=== PATIENT | male | born 1975 | race American Indian/Alaskan Native ===

== ENCOUNTER 2017-10-27 15:47 | Emergency (ER) | payer SELFPAY ==
[2017-10-27] MEDS ORDERED: BOOSTRIX IM ONE (19:42)
[2017-10-27] MEDS ORDERED: ULTRAM PO ONE (19:42)
[2017-10-27] MEDS ORDERED: CATAPRES PO ONE (20:11)
--- NOTE | 2017-10-27 20:16 | Emergency Department Report ---
- General Chief Complaint: Puncture Wound Stated Complaint: CHEST PAIN/STEPPED ON NAIL Time Seen by Provider: 10/27/17 19:41 Source: patient Mode of arrival: Ambulatory Limitations: No Limitations - History of Present Illness Initial Comments: Patient is a 42-year-old -[place] male who presents with left foot pain status post stepping on a kasandra nail 3 days ago complains of 4/10 left foot pain exacerbated by weightbearing patient is ambulatory with minimal gait disturbance there is no swelling no bleeding no discharge from the wound dry and intact patient denies numbness numbness or tingling. Patient denies chest pain as indicated per triage patient does have a history of hypertension however nonadhering with blood pressure medicine regimen. Patient denies chest pain or shortness of breath no dizziness no lightheadedness no chest no nausea vomiting. Onset/Timin -: days(s) Location: other Extremity Location: Left: Foot Place: home Patient Tetanus UTD: No (2004) Context: sharp object use (nail ) Associated Symptoms: pain. denies: loss of feeling/numbness, suspect foreign body present, unable to move injured part, weakness followed by dizziness, nausea/vomiting, fever - Related Data Previous Rx's Medication Instructions Recorded Last Taken Type Lisinopril [Zestril TAB] 10 mg PO QDAY #30 tablet 11/22/13 Unknown Rx Sulfamethoxazole/Trimethoprim 1 each PO BID #20 tablet 11/22/13 Unknown Rx [Bactrim Ds] Ciprofloxacin HCl [Cipro] 500 mg PO BID #20 tablet 10/27/17 Unknown Rx amLODIPine [Norvasc] 5 mg PO DAILY #30 tab 10/27/17 Unknown Rx traMADol [Ultram] 50 mg PO Q8HR PRN #10 tablet 10/27/17 Unknown Rx Allergies Allergy/AdvReac Type Severity Reaction Status Date / Time No Known Allergies Allergy Verified 10/27/17 16:15 ED Review of Systems ROS: Stated complaint: CHEST PAIN/STEPPED ON NAIL Other details as noted in HPI Constitutional: denies: chills, fever Eyes: denies: eye pain, eye discharge, vision change ENT: denies: ear pain, throat pain Respiratory: denies: cough, shortness of breath, wheezing Cardiovascular: denies: chest pain, palpitations Endocrine: no symptoms reported Gastrointestinal: denies: abdominal pain, nausea, diarrhea Genitourinary: denies: urgency, dysuria Musculoskeletal: myalgia (foot pain ), other Skin: other (puncture wound left foot ) Neurological: denies: headache, weakness, paresthesias Psychiatric: denies: anxiety, depression Hematological/Lymphatic: denies: easy bleeding, easy bruising ED Past Medical Hx - Past Medical History Previous Medical History?: Yes Hx Hypertension: Yes (Hasn't taken meds since 01/2017) - Surgical History Past Surgical History?: No - Social History Smoking Status: Current Every Day Smoker Substance Use Type: None - Medications Home Medications: Home Medications Medication Instructions Recorded Confirmed Last Taken Type Lisinopril [Zestril TAB] 10 mg PO QDAY #30 tablet 11/22/13 Unknown Rx Sulfamethoxazole/Trimethoprim 1 each PO BID #20 tablet 11/22/13 Unknown Rx [Bactrim Ds] Ciprofloxacin HCl [Cipro] 500 mg PO BID #20 tablet 10/27/17 Unknown Rx amLODIPine [Norvasc] 5 mg PO DAILY #30 tab 10/27/17 Unknown Rx traMADol [Ultram] 50 mg PO Q8HR PRN #10 tablet 10/27/17 Unknown Rx ED Physical Exam - General Limitations: No Limitations General appearance: alert, in no apparent distress - Head Head exam: Present: atraumatic, normocephalic - Eye Eye exam: Present: normal appearance - ENT ENT exam: Present: mucous membranes moist - Neck Neck exam: Present: normal inspection - Respiratory Respiratory exam: Present: normal lung sounds bilaterally. Absent: respiratory distress - Cardiovascular Cardiovascular Exam: Present: regular rate, normal rhythm. Absent: systolic murmur, diastolic murmur, rubs, gallop - GI/Abdominal GI/Abdominal exam: Present: soft, normal bowel sounds - Rectal Rectal exam: Present: deferred - Extremities Exam Extremities exam: Present: normal inspection, tenderness (left foot pain ) ED Course Vital Signs 10/27/17 16:11 Temperature 98.6 F Pulse Rate 97 H Respiratory 18 Rate Blood Pressure 185/125 O2 Sat by Pulse 100 Oximetry ED Medical Decision Making - Radiology Data Radiology results: image reviewed no fracture no soft tissue abnormality - Medical Decision Making this is a simple puncture wound pt given wound care instructions pt is ambulatory, did have on athletic shoes as time of puncture will tx with cipro po bid x 10 days xray neg for fracture no foreignbody, will dc to home in stable condition will follow up with [facility] in 2-3 days for wound check , wound is clean no erythema no swelling no ecchymosis sno drainage at this time. Critical care attestation.: If time is entered above; I have spent that time in minutes in the direct care of this critically ill patient, excluding procedure time. ED Disposition Clinical Impression: Puncture wound of foot Qualifiers: Encounter type: initial encounter Laterality: left Qualified Code(s): S91.332A - Puncture wound without foreign body, left foot, initial encounter Disposition: DC-01 TO HOME OR SELFCARE Is pt being admited?: No Does the pt Need Aspirin: No Condition: Good Instructions: Puncture Wound (ED), Chronic Hypertension (ED) Prescriptions: amLODIPine [Norvasc] 5 mg PO DAILY #30 tab Ciprofloxacin HCl [Cipro] 500 mg PO BID #20 tablet traMADol [Ultram] 50 mg PO Q8HR PRN #10 tablet PRN Reason: Pain Referrals: [facility] [Outside] - 3-5 Days Forms: Work/School Release Form(ED) Time of Disposition: 20:24
--- NOTE | 2017-10-27 20:20 | XRay Report ---
FINAL REPORT PROCEDURE: XR FOOT 2V LT TECHNIQUE: LEFT foot radiographs, AP and lateral views. HISTORY: stepped on nail.... middle of foot COMPARISON: No prior studies are available for comparison. FINDINGS: Fracture (s) and/or Dislocation(s): None . Alignment: Normal. Joint space(s): Normal. Soft tissues: Normal. Bone mineralization: Normal. Foreign bodies: None. Calcaneal spurring: None. IMPRESSION: Normal Examination.
[2017-10-27 20:22] VITALS: BP 194/125
== END 2017-10-27 20:39 | disposition home or self-care (01) ==
LOC: ED 15:47
DX: S91.332A Puncture wound without foreign body, left foot, initial encounter (principal); I10 Essential (primary) hypertension; F17.200 Nicotine dependence, unspecified, uncomplicated; W45.8XXA Other foreign body or object entering through skin, initial encounter; Y93.89 Activity, other specified; Y92.89 Other specified places as the place of occurrence of the external cause; Y99.8 Other external cause status
CPT/HCPCS: 90471; 90715

== ENCOUNTER 2021-05-22 12:25 | Emergency (ER) | payer SELFPAY ==
[2021-05-22] MEDS ORDERED: KETOROLAC 10 MG TAB PO ONE (17:45)
[2021-05-22] MEDS ORDERED: predniSONE 20 MG TAB PO ONE (17:45)
[2021-05-22] MEDS ORDERED: CYCLOBENZAPRINE 10 MG TAB PO ONE (17:46)
--- NOTE | 2021-05-22 18:37 | Emergency Department Report ---
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 He states that he started new job that requires alot of llifting and working increases pain. He also requests refill of HTN medication. ED Review of Systems ROS: Stated complaint: LEFT SIDED NUMBNESS/SHOULDER PAIN Other details as noted in HPI Comment: All other systems reviewed and negative Constitutional: denies: chills, fever Eyes: denies: eye pain ENT: denies: ear pain Respiratory: denies: shortness of breath Cardiovascular: denies: chest pain, dyspnea on exertion Endocrine: no symptoms reported Gastrointestinal: denies: abdominal pain, nausea, vomiting Genitourinary: denies: urgency, dysuria Musculoskeletal: denies: back pain Skin: denies: rash, lesions Neurological: numbness (to left arm). denies: headache, weakness, paresthesias Psychiatric: denies: anxiety Hematological/Lymphatic: easy bruising. denies: easy bleeding ED Past Medical Hx - Past Medical History Hx Hypertension: Yes (Hasn't taken meds since 01/2017) - Social History Smoking Status: Current Every Day Smoker Substance Use Type: None - Medications Home Medications: Home Medications Medication Instructions Recorded Confirmed Last Taken Type Sulfamethoxazole/Trimethoprim 1 each PO BID #20 tablet 11/22/13 Unknown Rx [Bactrim Ds] lisinopriL [Zestril TAB] 10 mg PO QDAY #30 tablet 11/22/13 Unknown Rx Ciprofloxacin HCl [Cipro] 500 mg PO BID #20 tablet 10/27/17 Unknown Rx traMADoL [Ultram] 50 mg PO Q8HR PRN #10 tablet 10/27/17 Unknown Rx Cyclobenzaprine [Flexeril] 10 mg PO TID PRN #21 tab 05/22/21 Unknown Rx Naproxen [Naprosyn] 500 mg PO BID #14 tab 05/22/21 Unknown Rx amLODIPine 5 mg PO DAILY #30 tab 05/22/21 Unknown Rx prednisoLONE [Millipred 5mg (6 day 5 mg PO QDAY #1 pack 05/22/21 Unknown Rx 21 tab dosepak)] Upper Extremity Exam - Exam General: Vital signs noted. No distress. Alert and acting appropriately. Head and Torso: No HEENT Abnormality, No Neck Tenderness, No Chest/Lungs Abnormality, No Abdominal Tenderness, No Back Tenderness Shoulder Exam: Yes Shoulder Tenderness, No Clavicle Tenderness, No Normal Range of Motion in Shoulder, No Shoulder Deformity, No AC Joint Tenderness Arm Exam: No Arm Deformity Elbow: Yes Normal Range of Motion in Elbow, No Elbow Tenderness, No Elbow Deformity Forearm: No Forearm Tenderness, No Forearm Deformity, No Pain with Pronation, No Pain with Supination CMS Exam: Yes Normal Distal Pulses, Yes Normal Capillary Refill, Yes Normal Distal Sensation, No Broken Skin ED Course Vital Signs 05/22/21 05/22/21 15:13 18:10 Temperature 98.8 F Pulse Rate 105 H Respiratory 16 14 Rate Blood Pressure 175/120 [Left] O2 Sat by Pulse 100 Oximetry ED Medical Decision Making - Medical Decision Making 30 yo female with no pmh presents to ed for evaluation of left facial pain. She states that she was drinking last night and fell down and hit the left side of her face. She presents with pain and swelling to area. She denies LOC, headache, neck pain, dizziness, n/v, and ear pain or drainage. Exam consistent with cervical radicular pain. Patient denies injury. Pain was improved after medications given in Ed. Patient will be treated with 6 day course of steroids along with anti inflammatories and muscle relaxants. He was also given refill of norvasc for htn. He voices understanding of and agreement with plan of care. Critical care attestation.: If time is entered above; I have spent that time in minutes in the direct care of this critically ill patient, excluding procedure time. ED Disposition Clinical Impression: Cervical radicular pain, Medication refill Disposition: 01 HOME / SELF CARE / HOMELESS Is pt being admited?: No Does the pt Need Aspirin: No Condition: Stable Instructions: Radicular Pain, Amlodipine tablets, Cervical Radiculopathy, [id number] Additional Instructions: Take medications as prescribed. Follow-up with primary care provider if no improvement or worsening symptoms. Prescriptions: amLODIPine 5 mg PO DAILY #30 tab Cyclobenzaprine [Flexeril] 10 mg PO TID PRN #21 tab PRN Reason: Muscle Spasm prednisoLONE [Millipred 5mg (6 day 21 tab dosepak)] 5 mg PO QDAY #1 pack Naproxen [Naprosyn] 500 mg PO BID #14 tab Referrals: PRIMARY CARE, [Primary Care Provider] - 3-5 Days Forms: Work/School Release Form(ED) Time of Disposition: 18:37
[2021-05-22 19:29] VITALS: BP 155/112
== END 2021-05-22 19:28 | disposition home or self-care (01) ==
LOC: ED 12:25
DX: M54.12 Radiculopathy, cervical region (principal); Z76.0 Encounter for issue of repeat prescription; I10 Essential (primary) hypertension; F17.200 Nicotine dependence, unspecified, uncomplicated
CPT/HCPCS: 99282

== ENCOUNTER 2021-10-08 16:36 | Emergency (ER) | payer SELFPAY ==
--- NOTE | 2021-10-08 21:06 | XRay Report ---
CHEST 2 VIEWS INDICATION / CLINICAL INFORMATION: Chest Pain. COMPARISON: 11/21/2013 FINDINGS: SUPPORT DEVICES: None. HEART / MEDIASTINUM: No significant abnormality. LUNGS / PLEURA: No significant pulmonary or pleural abnormality. No pneumothorax. ADDITIONAL FINDINGS: No significant additional findings. IMPRESSION: 1. No acute findings. Signer Name: Joshua Cabral DO Signed: 10/08/2021 9:02 PM Workstation Name: [id number]
[2021-10-08 21:47] LABS: Alanine Aminotransferase 24 units/L (7-56); Albumin 4.5 g/dL (3.9-5); BUN/Creatinine Ratio 13; Blood Urea Nitrogen 31 mg/dL (9-20); Calcium 9.7 mg/dL (8.4-10.2); Hemolysis Index 3
[2021-10-09] MEDS ORDERED: SODIUM CHLORIDE 0.9% 1000 ML 1,000 ML IV ONE (06:27)
[2021-10-09] MEDS ORDERED: ONDANSETRON 4 MG/2 ML INJ IV ONE (06:27)
[2021-10-09 07:16] LABS: Basophils # (Auto) 0.1 K/mm3 (0.0-0.1); Basophils % (Auto) 0.5 % (0.0-1.8); Eosinophils % (Auto) 0.1 % (0.0-4.3); Hematocrit 47.8 % (35.5-45.6); Hemoglobin 15.6 gm/dl (11.8-15.2); Lymphocytes # (Auto) 2.8 K/mm3 (1.2-5.4); Lymphocytes % (Auto) 22.6 % (13.4-35.0); Mean Corpuscular HGB Conc 33 % (32-34); Mean Corpuscular Volume 98 fl (84-94); Monocytes # (Auto) 1.5 K/mm3 (0.0-0.8); Monocytes % (Auto) 12.3 % (0.0-7.3); Platelet Count 243 K/mm3 (140-440); Red Blood Count 4.87 M/mm3 (3.65-5.03); Red Cell Distribution Width 12.5 % (13.2-15.2)
--- NOTE | 2021-10-09 07:33 | Cat Scan Report ---
CT ABDOMEN AND PELVIS WITHOUT CONTRAST INDICATION / CLINICAL INFORMATION: r/o obstructive renal stone. TECHNIQUE: Axial CT images were obtained through the abdomen and pelvis without IV contrast. All CT scans at this location are performed using CT dose reduction for ALARA by means of automated exposure control. COMPARISON: CT abdomen and pelvis 03/04/2018. FINDINGS: LOWER CHEST: No significant abnormality. LIVER: No significant abnormality. GALLBLADDER: No significant abnormality. BILE DUCTS: No significant abnormality. PANCREAS: No significant abnormality. SPLEEN: No significant abnormality. ADRENALS: No significant abnormality. RIGHT KIDNEY / URETER: Subcentimeter cyst remains laterally. LEFT KIDNEY / URETER: No significant abnormality. STOMACH / SMALL BOWEL: No significant abnormality. COLON: No significant abnormality. APPENDIX: No significant abnormality. PERITONEUM: No free fluid. No free air. No fluid collection. LYMPH NODES: No significant adenopathy. VASCULAR STRUCTURES: No significant abnormality. URINARY BLADDER: No significant abnormality. REPRODUCTIVE ORGANS: No significant abnormality. ADDITIONAL FINDINGS: Small fat-containing umbilical hernia. SKELETAL SYSTEM: No significant abnormality. IMPRESSION: Negative for obstruction or localized inflammation. Signer Name: Praveen Bryan MD Signed: 10/09/2021 7:28 AM Workstation Name: [id number]
[2021-10-09 07:43] LABS: BUN/Creatinine Ratio 13
[2021-10-09 08:26] LABS: Alanine Aminotransferase 25 units/L (7-56); Albumin 4.6 g/dL (3.9-5); Blood Urea Nitrogen 32 mg/dL (9-20); Calcium 9.8 mg/dL (8.4-10.2); Hemolysis Index 3
--- NOTE | 2021-10-09 08:41 | Emergency Department Report ---
ED General Adult HPI - General Chief complaint: Chest Pain Stated complaint: CHEST PAIN Time Seen by Provider: 10/09/21 07:46 Source: patient Mode of arrival: Ambulatory Limitations: No Limitations - History of Present Illness Initial comments: Patient presents with chest pain that has been going on for the last week. Patient states that he has been having decrease in urination. He has been outside working. His chest pain is mild nothing makes it better or worse. Patient has no shortness of breath patient has no nausea or vomiting he states that he has not followed up with his primary care doctor in a long time. Severity scale (0 -10): 4 - Related Data Previous Rx's Medication Instructions Recorded Last Taken Type Sulfamethoxazole/Trimethoprim 1 each PO BID #20 tablet 11/22/13 Unknown Rx [Bactrim Ds] lisinopriL [Zestril TAB] 10 mg PO QDAY #30 tablet 11/22/13 Unknown Rx Ciprofloxacin HCl [Cipro] 500 mg PO BID #20 tablet 10/27/17 Unknown Rx traMADoL [Ultram] 50 mg PO Q8HR PRN #10 tablet 10/27/17 Unknown Rx Cyclobenzaprine [Flexeril] 10 mg PO TID PRN #21 tab 05/22/21 Unknown Rx Naproxen [Naprosyn] 500 mg PO BID #14 tab 05/22/21 Unknown Rx amLODIPine 5 mg PO DAILY #30 tab 05/22/21 Unknown Rx prednisoLONE [Millipred 5mg (6 day 5 mg PO QDAY #1 pack 05/22/21 Unknown Rx 21 tab dosepak)] Allergies Allergy/AdvReac Type Severity Reaction Status Date / Time No Known Allergies Allergy Verified 10/27/17 16:15 ED Review of Systems ROS: Stated complaint: CHEST PAIN Other details as noted in HPI Constitutional: denies: chills, fever Eyes: denies: eye pain, eye discharge, vision change ENT: denies: ear pain, throat pain Respiratory: denies: cough, shortness of breath, wheezing Cardiovascular: chest pain. denies: palpitations Endocrine: no symptoms reported Gastrointestinal: denies: abdominal pain, nausea, diarrhea Genitourinary: denies: urgency, dysuria Musculoskeletal: denies: back pain, joint swelling, arthralgia Skin: denies: rash, lesions Neurological: denies: headache, weakness, paresthesias Psychiatric: denies: anxiety, depression Hematological/Lymphatic: denies: easy bleeding, easy bruising ED Past Medical Hx - Past Medical History Hx Hypertension: Yes (Hasn't taken meds since 01/2017) - Social History Smoking Status: Current Every Day Smoker - Medications Home Medications: Home Medications Medication Instructions Recorded Confirmed Last Taken Type Sulfamethoxazole/Trimethoprim 1 each PO BID #20 tablet 11/22/13 Unknown Rx [Bactrim Ds] lisinopriL [Zestril TAB] 10 mg PO QDAY #30 tablet 11/22/13 Unknown Rx Ciprofloxacin HCl [Cipro] 500 mg PO BID #20 tablet 10/27/17 Unknown Rx traMADoL [Ultram] 50 mg PO Q8HR PRN #10 tablet 10/27/17 Unknown Rx Cyclobenzaprine [Flexeril] 10 mg PO TID PRN #21 tab 05/22/21 Unknown Rx Naproxen [Naprosyn] 500 mg PO BID #14 tab 05/22/21 Unknown Rx amLODIPine 5 mg PO DAILY #30 tab 05/22/21 Unknown Rx prednisoLONE [Millipred 5mg (6 day 5 mg PO QDAY #1 pack 05/22/21 Unknown Rx 21 tab dosepak)] ED Physical Exam - General Limitations: No Limitations General appearance: alert, in no apparent distress - Head Head exam: Present: atraumatic, normocephalic - Eye Eye exam: Present: normal appearance - ENT ENT exam: Present: mucous membranes moist - Neck Neck exam: Present: normal inspection - Respiratory Respiratory exam: Present: normal lung sounds bilaterally. Absent: respiratory distress - Cardiovascular Cardiovascular Exam: Present: regular rate, normal rhythm. Absent: systolic murmur, diastolic murmur, rubs, gallop - GI/Abdominal GI/Abdominal exam: Present: soft, normal bowel sounds - Rectal Rectal exam: Present: deferred - Extremities Exam Extremities exam: Present: normal inspection - Back Exam Back exam: Present: normal inspection - Neurological Exam Neurological exam: Present: alert, oriented X3 - Psychiatric Psychiatric exam: Present: normal affect, normal mood - Skin Skin exam: Present: warm, dry, intact, normal color. Absent: rash ED Course Vital Signs 10/08/21 10/09/21 10/09/21 18:05 06:06 06:07 Temperature 97.9 F 98.9 F Pulse Rate 131 H 95 H Respiratory 18 15 15 Rate Blood Pressure 130/91 Blood Pressure 119/93 [Left] O2 Sat by Pulse 100 100 95 Oximetry 10/09/21 09:08 Temperature Pulse Rate Respiratory 18 Rate Blood Pressure Blood Pressure [Left] O2 Sat by Pulse 99 Oximetry - Consultations Consultation #1: 10/09/21 12:[address] Lewis he states patient should follow-up with nephrology and that he does not meet any criteria to be admitted. ED Medical Decision Making - Lab Data Result diagrams: 10/09/21 06:46 10/09/21 06:46 Lab Results 10/08/21 10/09/21 10/09/21 Range/Units 20:58 06:46 06:46 WBC 12.3 H (4.5-11.0) K/mm3 RBC 4.87 (3.65-5.03) M/mm3 Hgb 15.6 H (11.8-15.2) gm/dl Hct 47.8 H (35.5-45.6) % MCV 98 H (84-94) fl MCH 32 (28-32) pg MCHC 33 (32-34) % RDW 12.5 L (13.2-15.2) % Plt Count 243 (140-440) K/mm3 Lymph % (Auto) 22.6 (13.4-35.0) % [place] % (Auto) 12.3 H (0.0-7.3) % Eos % (Auto) 0.1 (0.0-4.3) % Baso % (Auto) 0.5 (0.0-1.8) % Lymph # (Auto) 2.8 (1.2-5.4) K/mm3 [place] # (Auto) 1.5 H (0.0-0.8) K/mm3 Eos # (Auto) 0.0 (0.0-0.4) K/mm3 Baso # (Auto) 0.1 (0.0-0.1) K/mm3 Seg Neutrophils % 64.5 (40.0-70.0) % Seg Neutrophils # 7.9 H (1.8-7.7) K/mm3 Sodium 138 138 (137-145) mmol/L Potassium 4.4 4.5 (3.6-5.0) mmol/L Chloride 100.8 97.6 L (98-107) mmol/L Carbon Dioxide 20 L 21 L (22-30) mmol/L Anion Gap 22 24 mmol/L BUN 31 H 32 H (9-20) mg/dL Creatinine 2.3 H 2.5 H (0.8-1.3) mg/dL Estimated GFR 37 34 ml/min BUN/Creatinine Ratio 13 13 % Glucose 109 H 75 (75-100) mg/dL Calcium 9.7 9.8 (8.4-10.2) mg/dL Magnesium 2.00 (1.7-2.3) mg/dL Total Bilirubin 0.70 0.70 (0.1-1.2) mg/dL AST 26 27 (5-40) units/L ALT 24 25 (7-56) units/L Alkaline Phosphatase 122 126 (35-129) units/L Troponin T < 0.010 < 0.010 (0.00-0.029) ng/mL NT-Pro-B Natriuret Pep (0-450) pg/mL Total Protein 9.1 H 8.9 H (6.3-8.2) g/dL Albumin 4.5 4.6 (3.9-5) g/dL Albumin/Globulin Ratio 1.0 1.1 % /03/21 Range/Units 07:45 WBC (4.5-11.0) K/mm3 RBC (3.65-5.03) M/mm3 Hgb (11.8-15.2) gm/dl Hct (35.5-45.6) % MCV (84-94) fl MCH (28-32) pg MCHC (32-34) % RDW (13.2-15.2) % Plt Count (140-440) K/mm3 Lymph % (Auto) (13.4-35.0) % [place] % (Auto) (0.0-7.3) % Eos % (Auto) (0.0-4.3) % Baso % (Auto) (0.0-1.8) % Lymph # (Auto) (1.2-5.4) K/mm3 [place] # (Auto) (0.0-0.8) K/mm3 Eos # (Auto) (0.0-0.4) K/mm3 Baso # (Auto) (0.0-0.1) K/mm3 Seg Neutrophils % (40.0-70.0) % Seg Neutrophils # (1.8-7.7) K/mm3 Sodium (137-145) mmol/L Potassium (3.6-5.0) mmol/L Chloride (98-107) mmol/L Carbon Dioxide (22-30) mmol/L Anion Gap mmol/L BUN (9-20) mg/dL Creatinine (0.8-1.3) mg/dL Estimated GFR ml/min BUN/Creatinine Ratio % Glucose (75-100) mg/dL Calcium (8.4-10.2) mg/dL Magnesium (1.7-2.3) mg/dL Total Bilirubin (0.1-1.2) mg/dL AST (5-40) units/L ALT (7-56) units/L Alkaline Phosphatase (35-129) units/L Troponin T (0.00-0.029) ng/mL NT-Pro-B Natriuret Pep 11.68 (0-450) pg/mL Total Protein (6.3-8.2) g/dL Albumin (3.9-5) g/dL Albumin/Globulin Ratio % - EKG Data -: EKG Interpreted by Me - EKG Data 10/09/21 12:48 EKG time 5: 25 rate 96 sinus rhythm left atrial enlargement benign early repolarization. - Radiology Data Radiology results: report reviewed, image reviewed EKG time: 5: 25 rate 96 sinus rhythm left atrial enlargement ST segment elevation likely benign early repolarization - Medical Decision Making Chief medical diagnosis: Non-STEMI Differential medical diagnosis chronic kidney disease, acute kidney injury I will get stat troponin to sets of troponin blood work IV fluids EKG IV pain medicine and will reevaluate patient. Critical care attestation.: If time is entered above; I have spent that time in minutes in the direct care of this critically ill patient, excluding procedure time. ED Disposition Clinical Impression: Chest pain Qualifiers: Chest pain type: unspecified Qualified Code(s): R07.9 - Chest pain, unspecified CKD (chronic kidney disease) Qualifiers: Chronic kidney disease stage: stage 3 (moderate) Chronic kidney disease stage 3 subtype: unspecified whether 3a or 3b Qualified Code(s): N18.30 - Chronic kidney disease, stage 3 unspecified Disposition: 01 HOME / SELF CARE / HOMELESS Is pt being admited?: No Does the pt Need Aspirin: No Condition: Stable Instructions: Nonspecific Chest Pain, Adult, Chronic Kidney Disease, Adult, [id number] Referrals: AZ TALLEY MD [Primary Care Provider] - 3-5 Days JACQUES RAY MD [Staff Physician] - 3-5 Days
[2021-10-09] MEDS ORDERED: oxyCODONE /ACETAMINOPHEN 5-325MG TAB PO ONE (13:28)
[2021-10-09 14:53] VITALS: BP 145/89
--- NOTE | 2021-10-10 08:53 | Electrocardiograph Report ---
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
--- NOTE | 2021-10-10 08:53 | Electrocardiograph Report ---
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
--- NOTE | 2021-10-10 08:57 | Electrocardiograph Report ---
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
== END 2021-10-09 14:52 | disposition home or self-care (01) ==
LOC: ED 16:36
DX: R07.9 Chest pain, unspecified (principal); I12.0 Hypertensive chronic kidney disease with stage 5 chronic kidney disease or end stage renal disease; N18.6 End stage renal disease; F17.200 Nicotine dependence, unspecified, uncomplicated; Z79.899 Other long term (current) drug therapy
CPT/HCPCS: 36415; 71046; 74176; 80053; 83735; 83880; 84484; 85025; 93005; 96361; 96374; 99284; J2405; J7030